=== PATIENT | female | born 1945 | race Caucasian/White ===

== ENCOUNTER 2016-12-07 14:47 | Emergency (ER) | payer OTHER, MEDICARE, BC ==
[~2016-12-07] VITALS: Ht 177.8 cm; Wt 75.0 kg
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
[2016-12-07 15:48] VITALS: BP 146/76; PULSE 80; RESP 16; TEMP 98.9; O2SAT 100
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
[2016-12-07] MEDS ORDERED: DIAZEPAM 2 MG TAB PO ONE (17:00)
== END 2016-12-07 18:13 | disposition home or self-care (01) ==
LOC: NEDAMB 14:47
DX: S16.1XXA Strain of muscle, fascia and tendon at neck level, initial encounter (principal); Z87.09 Personal history of other diseases of the respiratory system; V89.2XXA Person injured in unspecified motor-vehicle accident, traffic, initial encounter; Y92.410 Unspecified street and highway as the place of occurrence of the external cause
CPT/HCPCS: 72040; 99283

== ENCOUNTER → 2017-01-31 | Outpatient (CLI) | payer MEDICARE, BC ==
--- NOTE | 2017-02-05 11:30 | RSPPFT ---
DATE OF PROCEDURE: 01/31/17 COMMENTS: VOLUMES DYNAMIC: FVC and FEV1 normal. STATIC: TLC and FRC normal; RV mildly increased. FLOWS: FEV1% normal; FEF 25-75 moderately reduced. DIFFUSION: Normal. FLOW VOLUME LOOP: Terminal airflow obstruction. IMPRESSION: Mild obstructive ventilatory defect with mild hyperinflation. There is no response to bronchodilator of significance. Diffusion is normal.
== END ==
LOC: HRSP 13:20
PROVIDERS: ATTEND Internal Medicine
DX: J44.9 Chronic obstructive pulmonary disease, unspecified (principal)
CPT/HCPCS: 94060; 94620; 94726; 94729; 95012

== ENCOUNTER 2017-12-23 12:08 | Emergency (ER) | payer MEDICARE, BC ==
[~2017-12-23] VITALS: Ht 165.1 cm; Wt 49.1 kg
[2017-12-23 12:19] VITALS: BP 166/75; PULSE 73; RESP 18; TEMP 97.8; O2SAT 100
--- NOTE | 2017-12-23 13:17 | RADRPT ---
EXAM DATE/TIME: 12/23/2017 13:02 [facility] COMPARISON: No previous studies available for comparison. INDICATIONS : Shortness of breath. MEDICAL HISTORY : None. SURGICAL HISTORY : None. ENCOUNTER: Initial ACUITY: 3 days PAIN SCORE: 0/10 LOCATION: Bilateral chest FINDINGS: PA and lateral views of the chest demonstrate the lungs to be symmetrically aerated without evidence of mass, infiltrate or effusion. The cardiomediastinal contours are unremarkable. Osseous structure s are intact. Partially calcified breast implants are present. There are costal cartilage calcificati ons. There is a mild scoliosis. CONCLUSION: No acute disease. Jose Brooks MD on December 23, 2017 at 13:14 Board Certified Radiologist. This report was verified electronically.
[2017-12-23 13:45] LABS: AUTOMATED NEUTROPHIL # 3.1 TH/MM3 (1.8-7.7); BASOPHIL # 0.1 TH/MM3 (0-0.2); EOSINOPHIL # 0.2 TH/MM3 (0-0.4); EOSINOPHIL % 3.5 % (0.0-4.0); HEMATOCRIT 36.1 % (35.0-46.0); HEMOGLOBIN 12.2 GM/DL (11.6-15.3); LYMPH % 27.3 % (9.0-44.0); LYMPHOCYTE # 1.4 TH/MM3 (1.0-4.8); MEAN CELL VOLUME 92.1 FL (80.0-100.0); MEAN CORPUSCULAR HEMOGLOBIN 31.2 PG (27.0-34.0); MEAN CORPUSCULAR HGB CONC 33.8 % (32.0-36.0); MONO % 7.3 % (0.0-8.0); MONOCYTE # 0.4 TH/MM3 (0-0.9); NEUT % 60.9 % (16.0-70.0); PLATELET COUNT 293 TH/MM3 (150-450); RED BLOOD COUNT 3.92 MIL/MM3 (4.00-5.30); RED CELL DISTRIBUTION WIDTH 13.1 % (11.6-17.2)
[2017-12-23 13:50] LABS: PROTHROMBIN TIME - PATIENT 10.1 SEC (9.8-11.6)
[2017-12-23 14:03] LABS: TROPONIN I LESS THAN 0.02 NG/ML (0.02-0.05)
[2017-12-23 14:06] LABS: BLOOD UREA NITROGEN 8 MG/DL (7-18); CALCIUM 9.3 MG/DL (8.5-10.1); CHLORIDE 104 MEQ/L (98-107); CREATININE 0.84 MG/DL (0.50-1.00); GLOMERULAR FILTRATION RATE 66 ML/MIN (>89); GLUCOSE,RANDOM 91 MG/DL (74-106); MAGNESIUM 2.1 MG/DL (1.5-2.5); SODIUM (NA) 139 MEQ/L (136-145)
[2017-12-23 15:52] VITALS: BP 166/75; PULSE 62; RESP 15; TEMP 98.2; O2SAT 100
[2017-12-23] MEDS ORDERED: GABA100C4 PO (16:32)
--- NOTE | 2017-12-23 16:35 | PD ---
HPI Chief Complaint: Respiratory Symptoms Time Seen by Provider: 16:29 Travel History International Travel<30 days: No Contact w/Intl Traveler<30days: No Traveled to known affect area: No History of Present Illness HPI 72-year-old female arrives complaining of paresthesias in the bilateral lower extremities. She has felt them since August. She reports taking a course of prednisone 10 mg daily for 30 days prescribed to her by play therapist due to an adverse reaction to the cosmetic injections to the face. She also took doxycycline prior to that. She is concerned she may have suffered nerve damage due to the prolonged prednisone use. She describes a sensation of swelling and tightness about this gain in the feet. She has a referral to Dr. Martin of neurology pending however has not yet seen him and is worried about permanent nerve damage. She reports occasional involvement of the fingers as well. [facility] Past Medical History COPD: Yes Diminished Hearing: No Respiratory: Yes (COPD) Immunizations Current: Yes Tetanus Vaccination: > 5 Years Influenza Vaccination: Yes LMP: 1979 Social History Alcohol Use: No Tobacco Use: No Substance Use: No Allergies-Medications (Allergen,Severity, Reaction): Coded Allergies: levofloxacin (Unverified Allergy, Mild, 04/17/17) Uncoded Allergies: levoquin (Allergy, Mild, 12/07/16) Reported Meds & Prescriptions Reported Meds & Active Scripts Active Gabapentin 100 Mg Cap 100 Mg PO BID Review of Systems Except as stated in HPI: all other systems reviewed are Neg Physical Exam Narrative GENERAL: 72-year-old female well-nourished well-developed mild distress Vital Signs Date Time Temp Pulse Resp B/P (MAP) Pulse Ox O2 Delivery O2 Flow Rate FiO2 12/23/17 16:55 97.8 68 16 145/76 (99) 99 12/23/17 16:55 97.8 76 16 124/81 (95) 99 12/23/17 15:52 98.2 62 15 166/75 (105) 100 Room Air 12/23/17 15:52 62 15 100 Room Air 12/23/17 12:19 97.8 73 18 166/75 (105) 100 SKIN: Warm and dry. HEAD: Atraumatic. Normocephalic. EYES: Pupils equal and round. No scleral icterus. No injection or drainage. ENT: No nasal bleeding or discharge. Mucous membranes pink and moist. NECK: Trachea midline. No JVD. CARDIOVASCULAR: Regular rate and rhythm. 2+ dorsalis pedis bilaterally. RESPIRATORY: No accessory muscle use. Clear to auscultation. Breath sounds equal bilaterally. GASTROINTESTINAL: Abdomen soft, non-tender, nondistended. Hepatic and splenic margins not palpable. MUSCULOSKELETAL: Extremities without clubbing, cyanosis, or edema. No obvious deformities. No edema either side. NEUROLOGICAL: Awake and alert. No obvious cranial nerve deficits. Motor grossly within normal limits. Five out of 5 muscle strength in the arms and legs. Normal speech. PSYCHIATRIC: Appropriate mood and affect; insight and judgment normal. Data Data Last Documented VS Vital Signs Date Time Temp Pulse Resp B/P (MAP) Pulse Ox O2 Delivery O2 Flow Rate FiO2 12/23/17 16:55 97.8 68 16 145/76 (99) 99 12/23/17 15:52 Room Air Orders Orders Electrocardiogram (12/23/17 12:21) Basic Metabolic Panel (Bmp) (12/23/17 12:21) B-Type Natriuretic Peptide (12/23/17 12:21) Ckmb (Isoenzyme) Profile (12/23/17 12:21) Complete Blood Count With Diff (12/23/17 12:21) Magnesium (Mg) (12/23/17 12:21) Prothrombin Time / Inr (Pt) (12/23/17 12:21) Act Partial Throm Time (Ptt) (12/23/17 12:21) Troponin I (12/23/17 12:21) Chest, Pa & Lat (12/23/17 12:21) CKMB (12/23/17 13:21) CKMB% (12/23/17 13:21) Ed Discharge Order (12/23/17 16:35) Labs Laboratory Tests Test 12/23/17 13:21 White Blood Count 5.0 TH/MM3 Red Blood Count 3.92 MIL/MM3 Hemoglobin 12.2 GM/DL Hematocrit 36.1 % Mean Corpuscular Volume 92.1 FL Mean Corpuscular Hemoglobin 31.2 PG Mean Corpuscular Hemoglobin Concent 33.8 % Red Cell Distribution Width 13.1 % Platelet Count 293 TH/MM3 Mean Platelet Volume 8.0 FL Neutrophils (%) (Auto) 60.9 % Lymphocytes (%) (Auto) 27.3 % Monocytes (%) (Auto) 7.3 % Eosinophils (%) (Auto) 3.5 % Basophils (%) (Auto) 1.0 % Neutrophils # (Auto) 3.1 TH/MM3 Lymphocytes # (Auto) 1.4 TH/MM3 Monocytes # (Auto) 0.4 TH/MM3 Eosinophils # (Auto) 0.2 TH/MM3 Basophils # (Auto) 0.1 TH/MM3 CBC Comment DIFF FINAL Differential Comment Prothrombin Time 10.1 SEC Prothromb Time International Ratio 1.0 RATIO Activated Partial Thromboplast Time 28.9 SEC Blood Urea Nitrogen 8 MG/DL Creatinine 0.84 MG/DL Random Glucose 91 MG/DL Calcium Level 9.3 MG/DL Magnesium Level 2.1 MG/DL Sodium Level 139 MEQ/L Potassium Level 4.0 MEQ/L Chloride Level 104 MEQ/L Carbon Dioxide Level 29.0 MEQ/L Anion Gap 6 MEQ/L Estimat Glomerular Filtration Rate 66 ML/MIN Total Creatine Kinase 435 U/L Creatine Kinase MB 2.3 NG/ML Creatine Kinase MB % 0.5 % Troponin I LESS THAN 0.02 NG/ML B-Type Natriuretic Peptide 43 PG/ML MDM Medical Decision Making Medical Screen Exam Complete: Yes Emergency Medical Condition: Yes Medical Record Reviewed: Yes Differential Diagnosis Neuropathy, paresthesia, edema, arterial occlusion, DVT Narrative Course CBC & BMP Diagram 12/23/17 13:21 Calcium Level 9.3, Magnesium Level 2.1 Last Impressions Chest X-Ray 12/23/17 1221 Signed Impressions: Service Date/Time: Saturday, December 23, 2017 13:02 - CONCLUSION: No acute disease. Jose Brooks MD Gabapentin prescription. Follow-up with Dr. Martin as planned. Diagnosis Primary Impression: Distal paresthesia Referrals: Anthony Martin MD PhD call for appointment Med/Other Pt SpecificInfo: Prescription(s) given Scripts Gabapentin (Gabapentin) 100 Mg Cap 100 MG PO BID, #60 CAP 0 Refills Prov: Gato Venegas MD 12/23/17 Disposition: 01 DISCHARGE HOME Condition: Stable Gato Venegas MD Dec 23, 2017 16:35
[2017-12-23 16:55] VITALS: BP_SYST 124; BP_SYST 145; BP_DIAS 76; BP_DIAS 81; TEMP 97.8
--- NOTE | 2017-12-23 20:46 | EKG ---
Date Performed: 12/23/2017 Time Performed: 13:19:50 PTAGE: 72 years EKG: Sinus rhythm WITH SHORT SC INTERVAL BORDERLINE ECG PREVIOUS TRACING : 12/23/2017 13.19, image not available. DOCTOR: Kasi Williamson Interpretating Date/Time 12/23/2017 20:45:19
== END 2017-12-23 17:00 | disposition home or self-care (01) ==
LOC: NEPE 12:08
DX: R20.2 Paresthesia of skin (principal); R94.31 Abnormal electrocardiogram [ECG] [EKG]; Z79.899 Other long term (current) drug therapy; Z87.09 Personal history of other diseases of the respiratory system
CPT/HCPCS: 71046; 80048; 82550; 82552; 83735; 83880; 84484; 85025; 85610; 85730; 93005; 99285